=== PATIENT | male | born 1995 | race Caucasian/White ===

== ENCOUNTER 2025-08-25 07:44 | Outpatient (CLI) | payer OTHER, SELFPAY ==
--- NOTE | ~2025-08-25 | MR_ITS ---
EXAMINATION: MR knee LT wo con DATE: 08/25/2025 08:49 INDICATION: Left knee injury with anterior left knee pain TECHNIQUE: Magnetic resonance imaging (MRI) of the left knee was performed without intravenous contrast. Sequences included coronal PD-weighted FSE, coronal PD-weighted FS FSE, sagittal T2-weighted FSE, sagittal PD-weighted FS FSE and axial PD weighted fat saturated FSE. COMPARISON: None. FINDINGS: Medial compartment: Medial meniscus is normal. Articular cartilage is normal. Lateral compartment: Lateral meniscus is normal. Articular cartilage is normal. Patellofemoral compartment: Articular cartilage is normal. Ligaments and tendons: Anterior and posterior cruciate ligaments are normal. The medial collateral ligament and fibular collateral ligament complex are normal. Patellar tendon is normal. There is mild increased signal in extending between the intact appearing tendon fibers of the distal quadriceps tendon sided predominance with mild overlying subcutaneous edema. The visualized medial and lateral hamstring tendons as well as the iliotibial band are normal. Fluid: Physiologic amount of fluid in the joint space. No loose osteochondral bodies identified. Osseous/other: Nonspecific mild marrow edema at the patella which given the history of trauma could represent a bone contusion. Bone islands at the medial femoral condyle and along the medial metaphyseal region of the proximal tibia. No fracture or pathologic marrow replacing process. IMPRESSION: 1. Marrow edema at the patella and mild increased signal at the distal quadriceps tendon with mild soft tissue swelling overlying the medial margin of the patellar footplate. Findings suggestive of posttraumatic contusion without evident fracture. 2. Normal menisci, cartilage and stabilizing ligaments of the knee. Reviewed, dictated and finalized at location A. BURSEMENT AUDITOR IMPRESSION: 1. Marrow edema at the patella and mild increased signal at the distal quadrice ps tendon with mild soft tissue swelling overlying the medial margin of the pat ellar footplate. Findings suggestive of posttraumatic contusion without evident fracture. 2. Normal menisci, cartilage and stabilizing ligaments of the knee.
== END 2025-08-25 07:45 | disposition home or self-care (01) ==
PROVIDERS: PCP Orthopaedic Surgery; Visit Provider Orthopaedic Surgery
DX: S89.92XA Unspecified injury of left lower leg, initial encounter (principal); X58.XXXA Exposure to other specified factors, initial encounter
CPT/HCPCS: 73721